=== PATIENT | male | born 1995 | race Caucasian/White ===

== ENCOUNTER 2021-08-26 00:27 | Inpatient (IN) | payer OTHER ==
[~2021-08-26] VITALS: Ht 162.6 cm; Wt 78.0 kg
[2021-08-26 03:32] LABS: HEMOGLOBIN 15.5 gm/dl (14.0-17.5); RED BLOOD COUNT 4.95 M/UL (4.20-5.50); WHITE BLOOD COUNT 15.6 K/UL (4.5-11.0)
[2021-08-26] MEDS ORDERED: CLONAZEPAM1 MG PO (12:03)
[2021-08-26] MEDS ORDERED: PROAIR HFA8.5 GM INH (12:03)
[2021-08-26] MEDS ORDERED: ESCITALOPRAM OX10 MG PO (12:04)
[2021-08-26] MEDS ORDERED: GABAPENTIN800 MG PO (12:04)
[2021-08-26] MEDS ORDERED: TIZANIDINE HCL4 MG PO (12:05)
[2021-08-26] MEDS ORDERED: METHOCARBAMOL500 MG PO (12:05)
[2021-08-27 01:57] LABS: HEMOGLOBIN 14.3 gm/dl (14.0-17.5); RED BLOOD COUNT 4.62 M/UL (4.20-5.50)
[2021-08-27 01:58] LABS: WHITE BLOOD COUNT 9.2 K/UL (4.5-11.0)
[2021-08-27 02:21] LABS: BUN/CREATININE RATIO 18 (0-10)
[2021-08-27] MEDS ORDERED: LIPITOR40 MG PO (11:54)
[2021-08-27] MEDS ORDERED: LOPRESSOR 25 MG25 MG PO (11:54)
[2021-08-27] MEDS ORDERED: CLOPIDOGREL75 MG PO (11:54)
[2021-08-27] MEDS ORDERED: NICOTINE PATCH1 EAC2 TD (11:54)
[2021-08-27] MEDS ORDERED: ASPIRIN EC81 MG PO (11:54)
[2021-08-27] MEDS ORDERED: ELIQUIS 5 MG TAB5 MG PO (11:54)
[2021-08-27] MEDS ORDERED: NITROGLYCERIN0.4 MG SL (11:54)
== END 2021-08-27 12:15 | disposition home or self-care (01) | DRG 247 ==
LOC: PROG CARE 02:05
PROVIDERS: Internal Medicine Cardiovascular Disease; ADMIT Internal Medicine
PROC: 027034Z Dilation of Coronary Artery, One Artery with Drug-eluting Intraluminal Device, Percutaneous Approach (ICD-10-PCS; principal; 2021-08-26)
PROC: 02C03ZZ Extirpation of Matter from Coronary Artery, One Artery, Percutaneous Approach (ICD-10-PCS; 2021-08-26)
PROC: 4A023N7 Measurement of Cardiac Sampling and Pressure, Left Heart, Percutaneous Approach (ICD-10-PCS; 2021-08-26)
PROC: B2151ZZ Fluoroscopy of Left Heart using Low Osmolar Contrast (ICD-10-PCS; 2021-08-26)
PROC: B24BZZZ Ultrasonography of Heart with Aorta (ICD-10-PCS; 2021-08-27)
DX: I21.4 Non-ST elevation (NSTEMI) myocardial infarction (principal); I25.5 Ischemic cardiomyopathy; Z20.822 Contact with and (suspected) exposure to COVID-19; E11.9 Type 2 diabetes mellitus without complications; F19.10 Other psychoactive substance abuse, uncomplicated; E87.6 Hypokalemia; I08.1 Rheumatic disorders of both mitral and tricuspid valves; F17.210 Nicotine dependence, cigarettes, uncomplicated; G40.909 Epilepsy, unspecified, not intractable, without status epilepticus; R00.1 Bradycardia, unspecified; F12.10 Cannabis abuse, uncomplicated; Z79.01 Long term (current) use of anticoagulants; Z79.82 Long term (current) use of aspirin; Z71.6 Tobacco abuse counseling; Z79.4 Long term (current) use of insulin; Z91.14 Patient's other noncompliance with medication regimen; Z82.49 Family history of ischemic heart disease and other diseases of the circulatory system; Z88.8 Allergy status to other drugs, medicaments and biological substances; Z98.890 Other specified postprocedural states
CPT/HCPCS: 36415; 80048; 80061; 82550; 82553; 82962; 83036; 83690; 83880; 84439; 84443; 84484; 85025; 85347; 85610; 85652; 85730; 86140; 92973; 93005; 99152; 99153; C1725; C1757; C1769; C1874; C1887; C1894; C9600; J0461; J1644; J1956; J2250; J3010; J3246; J3480; J7040; Q9967